=== PATIENT | female | born 1995 | race Caucasian/White ===

== ENCOUNTER → 2017-11-04 13:34 | Outpatient (REF) | payer BC, SELFPAY ==
--- NOTE | 2017-11-04 11:30 | PAPFT_PTH ---
PATIENT: CHANDANA YUAN LOC: [facility] U#:[id number] AGE/SX: 29/F ROOM: RE11/04/[address]: Florinda Mendoza APRN : 1995 BED: DIS: SPEC #: [id number] RECD: 11/05/17 12:46 STATUS: SAROJ REQ #: [id number] MINA: 11/04/17 11:[address]: Florinda Mendoza DEPT: [facility] Cytology RECD BY: Carmel Arrieta ENTERED: 11/05/17 12:47 SP TYPE: PAPFT OTHR DR: Liane Naranjo MD Tissues: 1 - CX/ENDOCX FOR PAP SMEARS Procedures: PAP THIN PREP/[facility] Screening Comments: [id number]
== END ==
LOC: LBN 13:34
PROVIDERS: Family Provider Pediatrics
DX: Z12.4 Encounter for screening for malignant neoplasm of cervix (principal)
CPT/HCPCS: 88142

== ENCOUNTER 2018-08-10 18:18 | Emergency (ER) | payer BC, SELFPAY ==
[2018-08-10 18:21] VITALS: BP 126/83; PULSE 101; RESP 16; TEMP 36.8; O2SAT 99
--- NOTE | 2018-08-10 18:32 | ED.GENADUL_ITS ---
Discharge Plan Disposition Patient Disposition: HOME Discharge Details Chief Complaint: Trauma Clinical Impression: Contusion, Fall from horse Primary Care Provider: Florinda Mendoza ED Provider: Jaswinder Walker Home Meds and New Rx's Prescriptions: Continued norgestimate-ethinyl estradiol [Ortho-Cyclen (28)] 1 EACH tablet 1 ea PO DAILY Qty: 3 RF: 4 sumatriptan succinate 25 MG tablet 25 mg PO ONCE Qty: 10 RF: 1 ondansetron 8 MG tablet,disintegrating 8 mg PO ONCE Qty: 4 RF: 1 Discharge Instructions Instructions: Contusion in Adults (ED) Additional Instructions: Use crutches and weight bear as tolerated. Please take ibuprofen over the counter - 600mg every 6 hours as needed for pain. Please take acetaminophen (tylenol) - 650mg every 6 hours as needed for pain. Please contact your primary care physician to arrange follow-up as needed. Return to the ER for any worsening or new concerning symptoms. Referrals: Florinda Mendoza NP [Primary Care Provider] - Medical Decision Making 18:30 --23-year-old female here after fall from horse to the ground directly impacting her right hip. Concern pelvic fracture. Plan to obtain CT imaging. IAN FIELD. 19:50 -- CT of the abdomen and pelvis with IV contrast was interpreted by radiology: FINDINGS: ABDOMEN: Liver: No mass. Gallbladder and bile ducts: No calcified stones. No ductal dilation. Pancreas: No ductal dilation. No masses. Spleen: No splenomegaly or focal lesions. Adrenals: No mass. Kidneys and ureters: No hydronephrosis. No renal masses. Stomach and bowel: No obstruction. No mucosal thickening. Appendix: Mucosal enhancement of the appendix is minimally prominent however there is no wall thickening in the appendix. No distention of the appendix. No periappendiceal edema. No specific evidence of appendicitis. PELVIS: Bladder: The urinary bladder is distended. Reproductive: Unremarkable as visualized. ABDOMEN and PELVIS: Intraperitoneal space: Trace pelvic cul-de-sac free fluid. Bones/joints: No acute fracture. No dislocation. Soft tissues: No suspicious lesions. Vasculature: No abdominal aortic aneurysm. Lymph nodes: Mildly prominent right inguinal lymph node. IMPRESSION: Mucosal enhancement of the appendix is minimally prominent however there are no other signs of appendicitis. No appendiceal dilation. No periappendiceal edema. Consider close followup if there is a high clinical suspicion of acute appendicitis. Patient has no recent RLQ abdominal pain. Abdominal exam benign. Labs reviewed. Diagnostic results reviewed with patient. Patient feeling better. HPI General Mode of arrival: EMS . Date/Time Provider Initiated Documentation: 08/10/18 18:27 . Limitations to Documentation: no limitations . Information obtained by: patient and EMS . HPI Narrative: 23-year-old female presents after fall from horse to the ground directly impacting her right hip. This occurred just prior to arrival. Her chief complaint is right hip pain that has been present since the fall. Pain is severe and worse with movement. No associated numbness. She has no other injury. She did not injure her abdomen, chest, head or neck. No back pain. Related Data Home Medications Medication Instructions Recorded Confirmed norgestimate-ethinyl estradiol 1 ea PO DAILY #3 pack 11/04/17 08/10/18 [Ortho-Cyclen (28)] ondansetron 8 mg PO ONCE #4 tab-cap 11/04/17 08/10/18 sumatriptan succinate 25 mg PO ONCE #10 tab-cap 11/04/17 08/10/18 Previous Rx's Medication Instructions Recorded norgestimate-ethinyl estradiol 1 ea PO DAILY #3 pack 11/04/17 [Ortho-Cyclen (28)] ondansetron 8 mg PO ONCE #4 tab-cap 11/04/17 sumatriptan succinate 25 mg PO ONCE #10 tab-cap 11/04/17 Allergies Allergy/AdvReac Type Severity Reaction Status Date / Time No Known Allergies Allergy Unverified 08/10/18 18:25 General Stated Complaint: Trauma PILAR: 3 Review of Systems Review of Systems All systems reviewed & are unremarkable except as noted in HPI and below Musculoskeletal Reports as per HPI PFSH Medical History Dysmenorrhea in adolescent (Acute) Dysmenorrhea in adolescent (Acute) Surgical History Tooth extraction Family History Mother No problems noted. Father Alcohol abuse Sister No problems noted. Brother No problems noted. Grandfather Essential hypertension Personal history of malignant neoplasm Heart disease Hyperlipidemia Grandfather Essential hypertension Personal history of malignant neoplasm Heart disease Grandmother Diabetes Essential hypertension Heart disease Grandmother Personal history of malignant neoplasm Heart disease Stroke Maternal Uncle Diabetes Social History Smoking/Tobacco Use Status: Never Alcohol Intake: current Drug use: Never Substance use type: does not use Additional Social history: pt is not alone; unable to assess privately Exam Const General: cooperative and no acute distress HENMT Head: normocephalic and atraumatic Mouth: moist mucous membranes Eyes Conjunctivae: normal conjunctivae EOM: EOM intact bilaterally Neck Neck: full ROM, supple and nontender Resp Auscultation: clear to auscultation bilaterally, no rales, no rhonchi and no wheezes Cardio Jugular venous pressure: no JVD Rate: tachycardic Rhythm: regular rhythm GI Palpation: soft, not firm, no guarding, no masses, not rigid and nontender Skin General skin exam: no rashes or lesions noted Neuro General: alert, awake, oriented x3 and tone normal Extrem General: no edema Psych Appearance: grossly normal Mental Status: mental status grossly normal Course Vital Signs Temperature 36.8 C 08/10/18 18:21 Pulse 101 H 08/10/18 18:21 Respiratory Rate 16 08/10/18 18:21 Blood Pressure 126/83 08/10/18 18:21 Pulse Oximetry 99 08/10/18 18:21 Temperature 36.8 C 08/10/18 18:21 Temperature Source Skin 08/10/18 18:21 Pulse 101 H 08/10/18 18:21 Respiratory Rate 16 08/10/18 18:21 Respiratory Effort Non-Labored 08/10/18 18:22 Blood Pressure 126/83 08/10/18 18:21 Pulse Oximetry 99 08/10/18 18:21 Pain Level 10 08/10/18 18:21
[2018-08-10] MEDS: HYDROmorphone 2 MG/ML VIAL 0.5 MG IVP (18:58)
[2018-08-10] MEDS: Lactated Ringers 1,000 ML 150 ML IV (18:58)
[2018-08-10 19:02] LABS: Abs Immature Grans 0.03 k/cumm (0.0-0.09); Absolute Eosinophil Count 0.06 k/cumm (0.0-0.7); Absolute Monocyte Count 1.26 k/cumm (0.11-0.7); Absolute Neutrophil Count 8.79 k/cumm (1.2-6.7); Basophils % 0.3; Eosinophils % 0.5; HGB 13.3 g/dL (12.0-15.5); Immature Grans % 0.3; Lymphocytes % 13.4; Mean Corp. HGB Concentration 34.1 g/dL (32.0-36.0); Mean Corpuscular Hemoglobin 30.9 pg (27.0-33.0); Mean Corpuscular Volume 90.7 fL (80-95); Mean Platelet Volume 9.5 fL (8.0-11.0); Monocytes % 10.7; Neutrophils % 74.8; Platelet Count 368 x1000/uL (130-400); RBC Distribution Width 12.7 % (11.7-14.6); White Blood Cell Count 11.75 k/cumm (4.4-10.8)
[2018-08-10 19:03] VITALS: PULSE 104; O2SAT 97
[2018-08-10 19:04] LABS: Absolute Basophil Count 0.04 k/cumm (0.0-0.2); Absolute Lymphocyte Count 1.57 k/cumm (1.2-3.4)
[2018-08-10 19:12] LABS: ALT 30 U/L (12-78); AST 26 U/L (15-37); Albumin 3.5 g/dL (3.4-5.0); Alkaline Phosphatase 59 U/L (46-116); Anion Gap 11.2 mmol/L (3-11); BUN 21 mg/dL (7-18); Bilirubin, Total 0.3 mg/dL (0.2-1.0); CO2 24.8 mmol/L (21.0-32.0); Calcium 8.6 mg/dL (8.5-10.1); Chloride 103 mmol/L (98-107); Glucose 89 mg/dL (70-100); Potassium 3.4 mmol/L (3.5-5.1); Sodium 139 mmol/L (136-145); Total Protein 7.9 g/dL (6.4-8.2)
--- NOTE | 2018-08-10 19:15 | DI.CT_ITS ---
SYMPTOM/DIAGNOSIS: RT PELVIC AND HIP PAIN, FELL FROM HORSE ABDOMEN AND PELVIC CT: CT scan of the abdomen and pelvis was performed following the uneventful administration of intravenous contrast material. There are no priors. The visualized lung bases are clear. The liver, spleen, gallbladder, bile ducts, pancreas and adrenal glands are unremarkable as are the kidneys, ureters and bladder. The reproductive organs are unremarkable. The aorta is of normal caliber. No significant abdominal or pelvic adenopathy, ascites or pneumoperitoneum is seen. The appendix is mildly prominent measuring 0.7 cm. in diameter. There is mild enhancement of the wall but no periappendiceal inflammatory changes are seen. No findings to suggest an abscess or free air are noted. No fracture is identified. IMPRESSION: 1. No evidence of acute abdominal or pelvic organ injury. No acute fracture is identified. 2. Mildly prominent appendix. No periappendiceal inflammatory changes are seen or other changes to suggest acute appendicitis. Please correlate clinically and consider close follow up if there is a high suspicion for acute appendicitis.
[2018-08-10] MEDS: Omnipaque 350 MG/ML 100 ML BTL IJ (19:17)
[2018-08-10] MEDS: Normal Saline Flush 10 ML SYR IVP (19:18)
[2018-08-10 19:24] VITALS: BP 118/68; PULSE 100; RESP 16; O2SAT 97
[2018-08-10 19:31] VITALS: BP 122/58; PULSE 94; PULSE 99; RESP 21; O2SAT 96
--- NOTE | 2018-08-10 19:42 | DI.VRAD_ITS ---
EXAM: CT Abdomen and Pelvis With Contrast EXAM DATE/TIME: 08/10/2018 18:40 CLINICAL HISTORY: 23 years old, female; Injury or trauma; Transportation mode: Fall from horse; Initial encounter; Blunt; Injury date: 08/10/18; Injury details: Pain R pelvis and hip, rlq TECHNIQUE: Imaging protocol: Axial computed tomography images of the abdomen and pelvis with intravenous contrast. Coronal and sagittal reformatted images were created and reviewed. Radiation optimization: All CT scans at this facility use at least one of these dose optimization techniques: automated exposure control; mA and/or kV adjustment per patient size (includes targeted exams where dose is matched to clinical indication); or iterative reconstruction. Contrast material: OMNIPAQUE 350; Contrast volume: 100 ml; Contrast route: IV RAC; COMPARISON: No relevant prior studies available. FINDINGS: ABDOMEN: Liver: No mass. Gallbladder and bile ducts: No calcified stones. No ductal dilation. Pancreas: No ductal dilation. No masses. Spleen: No splenomegaly or focal lesions. Adrenals: No mass. Kidneys and ureters: No hydronephrosis. No renal masses. Stomach and bowel: No obstruction. No mucosal thickening. Appendix: Mucosal enhancement of the appendix is minimally prominent however there is no wall thickening in the appendix. No distention of the appendix. No periappendiceal edema. No specific evidence of appendicitis. PELVIS: Bladder: The urinary bladder is distended. Reproductive: Unremarkable as visualized. ABDOMEN and PELVIS: Intraperitoneal space: Trace pelvic cul-de-sac free fluid. Bones/joints: No acute fracture. No dislocation. Soft tissues: No suspicious lesions. Vasculature: No abdominal aortic aneurysm. Lymph nodes: Mildly prominent right inguinal lymph node. IMPRESSION: Mucosal enhancement of the appendix is minimally prominent however there are no other signs of appendicitis. No appendiceal dilation. No periappendiceal edema. Consider close followup if there is a high clinical suspicion of acute appendicitis. Dictated and Authenticated by: Salma Weinberg MD. Ordering:MONICA San MD
[2018-08-10 19:46] VITALS: BP 118/61; PULSE 101; PULSE 103; RESP 16; O2SAT 97
[2018-08-10 20:13] LABS: Bilirubin Negative (Negative); Blood Trace-intact (Negative); Clarity Clear; Glucose Negative (Negative); Ketones 40 mg/dL (Negative); Leukocyte Esterase Negative (Negative); Nitrite Negative (Negative); Specific Gravity 1.015 (1.005-1.025); Urobilinogen 0.2 EU/dL (Up TO 0.2); pH 5.5 (5-8)
[2018-08-10] MEDS: Acetaminophen 325 MG TAB 650 MG PO (20:14)
[2018-08-10] MEDS: Ibuprofen 600 MG TAB PO (20:15)
[2018-08-10] MEDS: Potassium Chloride 10 MEQ TABCR 20 MEQ PO (20:15)
[2018-08-10 20:16] VITALS: BP 126/72; PULSE 116; RESP 20; O2SAT 94
[2018-08-10 20:28] LABS: Bacteria Rare HPF (Negative); C & S Indicated? No; Casts Negative LPF (Negative); Crystals Negative HPF (Negative); Epithelial Cells Negative HPF (Negative); Mucus Negative (Negative); Other Cells Negative (Negative); RBC 0-2 (0-2); WBC 0-2 HPF (0-5)
== END 2018-08-10 20:25 | disposition home or self-care (01) ==
PROVIDERS: Emergency Provider Student in an Organized Health Care Education/Training Program
DX: S70.01XA Contusion of right hip, initial encounter (principal); V80.010A Animal-rider injured by fall from or being thrown from horse in noncollision accident, initial encounter
CPT/HCPCS: 36415; 80053; 86850; 86900; 86901; 96361; 96374; 99285; 74177; 81003; 81015; 85025; 99284; E0114; J3490

== ENCOUNTER 2018-10-09 03:12 | Outpatient (CLI) | payer BC, SELFPAY ==
[2018-10-12 11:42] LABS: Varicella IgG Antibody Positive
== END 2018-10-09 03:32 ==
DX: Z91.89 Other specified personal risk factors, not elsewhere classified (principal); Z11.59 Encounter for screening for other viral diseases
CPT/HCPCS: 36415; 86787